=== PATIENT | male | born 1995 | race Caucasian/White ===

== ENCOUNTER 2023-02-20 14:31 | Emergency (ER) | payer MEDICAID ==
[~2023-02-20] VITALS: Ht 175.3 cm; Wt 123.4 kg
[2023-02-20] MEDS ORDERED: IV NORMAL SALINE 1000 ML BAG IV ONE (14:45)
[2023-02-20] MEDS ORDERED: ONDANSETRON 4 MG/2 ML VIAL IV ONE (14:45)
[2023-02-20] MEDS ORDERED: ELIQUIS (14:46)
[2023-02-20] MEDS ORDERED: CLOZARIL (14:46)
[2023-02-20] MEDS ORDERED: DICYCLOMINE (14:46)
[2023-02-20] MEDS ORDERED: SERT50TA14 (14:46)
[2023-02-20 15:03] LABS: HEMATOCRIT 39.3 % (36.7-47.1); MEAN CORPUSCULAR HEMOGLOBIN 27.2 uug (23.8-33.4); MEAN CORPUSCULAR VOLUME 79.8 fL (73.0-96.2); PLATELET COUNT (AUTO) 165 K/uL (152-348)
[2023-02-20 15:10] LABS: CREATININE 0.9 mg/dL (0.6-1.3); POTASSIUM 4.1 mmol/L (3.5-5.1)
[2023-02-20 15:16] LABS: BILIRUBIN,DIRECT 0.2 mg/dL (0.0-0.2); BILIRUBIN,TOTAL 0.6 mg/dL (0.2-1.0); TOTAL PROTEIN, SERUM 8.6 g/dL (6.4-8.2)
--- NOTE | 2023-02-20 15:38 | NUR ---
Pt was very hard IV stick. placed a 20g in left FA near AC using portable U/S.
[2023-02-20] MEDS ORDERED: IOHEXOL 300MG/ML 100 ML INFUS..BTL ONE (16:06)
[2023-02-20] MEDS ORDERED: SWABABLE VALVE TRANSFER SET EA MC ONE (16:06)
[2023-02-20] MEDS ORDERED: IV NORMAL SALINE 250 ML IV ONE (16:07)
[2023-02-20] MEDS ORDERED: ONDANSETRON 4 MG/2 ML VIAL ONE (16:18)
[2023-02-20] MEDS ORDERED: DICY10CA13 PO (17:47)
--- NOTE | 2023-02-20 17:50 | NUR ---
Removed IV intact, site okay, bandaged. Gave pt and sister RX and d/c instructions, pt verbalized understanding.
== END 2023-02-20 17:56 | disposition home or self-care (01) ==
LOC: ER 14:33
DX: R10.84 Generalized abdominal pain (principal); Z79.899 Other long term (current) drug therapy
CPT/HCPCS: 99285; 74177; 96360; 96361; 80076; 80048; 83690; 85025; 85730; 36415; Q9967; A4663; J2405